=== PATIENT | male | born 1960 | race Caucasian/White ===

== ENCOUNTER 2022-10-29 15:26 | Outpatient (CLI) | payer OTHER, SELFPAY | END 2022-10-29 15:27 | disposition home or self-care (01) | LOC: LKVREF 15:28 | PROVIDERS: PCP Emergency Medicine; Visit Provider Nurse Practitioner Family | DX: I10 Essential (primary) hypertension (principal) | CPT/HCPCS: 80053 ==

== ENCOUNTER 2022-11-09 15:24 | Outpatient (CLI) | payer OTHER, SELFPAY | END 2022-11-09 15:25 | disposition home or self-care (01) | PROVIDERS: PCP Emergency Medicine; Visit Provider Emergency Medicine | DX: Z00.00 Encounter for general adult medical examination without abnormal findings (principal); E11.69 Type 2 diabetes mellitus with other specified complication; E66.9 Obesity, unspecified; I10 Essential (primary) hypertension; R73.09 Other abnormal glucose; Z13.6 Encounter for screening for cardiovascular disorders; Z12.5 Encounter for screening for malignant neoplasm of prostate | CPT/HCPCS: 80048; 80061; 80076; 84153 ==

== ENCOUNTER 2022-11-30 12:06 | Outpatient (CLI) | payer OTHER, SELFPAY | END 2022-11-30 12:07 | disposition home or self-care (01) | LOC: LKVREF 12:08 | PROVIDERS: PCP Emergency Medicine; Visit Provider Emergency Medicine | DX: E11.69 Type 2 diabetes mellitus with other specified complication (principal); E66.9 Obesity, unspecified; E78.5 Hyperlipidemia, unspecified; R73.09 Other abnormal glucose; I10 Essential (primary) hypertension; Z12.5 Encounter for screening for malignant neoplasm of prostate | CPT/HCPCS: 82043; 82570 ==

== ENCOUNTER 2023-02-09 11:02 | Outpatient (CLI) | payer OTHER, SELFPAY | END 2023-02-09 11:03 | disposition home or self-care (01) | PROVIDERS: PCP Emergency Medicine; Visit Provider Emergency Medicine | DX: E78.5 Hyperlipidemia, unspecified (principal); I10 Essential (primary) hypertension; E11.69 Type 2 diabetes mellitus with other specified complication; E66.9 Obesity, unspecified; R73.09 Other abnormal glucose | CPT/HCPCS: 80053; 80061 ==

== ENCOUNTER 2023-08-25 13:52 | Outpatient (CLI) | payer OTHER, SELFPAY | END 2023-08-25 13:53 | disposition home or self-care (01) | PROVIDERS: PCP Emergency Medicine; Visit Provider Emergency Medicine | DX: E78.5 Hyperlipidemia, unspecified (principal); E11.69 Type 2 diabetes mellitus with other specified complication; I10 Essential (primary) hypertension; R73.09 Other abnormal glucose; E66.9 Obesity, unspecified; Z12.5 Encounter for screening for malignant neoplasm of prostate; Z13.6 Encounter for screening for cardiovascular disorders | CPT/HCPCS: 80048; 82043; 82570 ==

== ENCOUNTER 2024-01-26 14:57 | Outpatient (CLI) | payer OTHER, SELFPAY | END 2024-01-26 14:58 | disposition home or self-care (01) | PROVIDERS: PCP Emergency Medicine; Visit Provider Emergency Medicine | DX: E78.2 Mixed hyperlipidemia (principal); I10 Essential (primary) hypertension; Z12.5 Encounter for screening for malignant neoplasm of prostate | CPT/HCPCS: 80048; 80061; G0103 ==

== ENCOUNTER 2024-04-26 16:07 | Outpatient (CLI) | payer OTHER, SELFPAY | END 2024-04-26 16:08 | disposition home or self-care (01) | LOC: LKVREF 16:08 | PROVIDERS: PCP Emergency Medicine; Visit Provider Emergency Medicine | DX: I10 Essential (primary) hypertension (principal) | CPT/HCPCS: 80048 ==

== ENCOUNTER 2024-11-01 16:22 | Outpatient (CLI) | payer OTHER, SELFPAY | END 2024-11-01 16:23 | disposition home or self-care (01) | PROVIDERS: PCP Emergency Medicine; Visit Provider Emergency Medicine | DX: I10 Essential (primary) hypertension (principal); R79.89 Other specified abnormal findings of blood chemistry; E66.9 Obesity, unspecified; E11.69 Type 2 diabetes mellitus with other specified complication | CPT/HCPCS: 80048; 82043; 82570 ==

== ENCOUNTER 2025-05-16 10:57 | Outpatient (CLI) | payer OTHER, SELFPAY | END 2025-05-16 10:58 | disposition home or self-care (01) | PROVIDERS: PCP Physician Assistant Medical; Visit Provider Physician Assistant Medical | DX: E11.69 Type 2 diabetes mellitus with other specified complication (principal); Z00.00 Encounter for general adult medical examination without abnormal findings; E66.9 Obesity, unspecified; Z68.34 Body mass index [BMI] 34.0-34.9, adult | CPT/HCPCS: 80061; 82043; 82570; 82607; G0103 ==